=== PATIENT | female | born 1960 | race Caucasian/White ===

== ENCOUNTER 2022-01-08 20:30 | Emergency (ER) | payer OTHER ==
[~2022-01-08 20:30] MED LIST: EPIPEN 2-P0.3 MG/0.3 IM; K-DUR20 MEQ PO; PREDNISONE 20MG20 MG PO; ZYRTEC10 MG PO
== END 2022-01-08 22:44 | disposition home or self-care (01) ==
LOC: FER 20:30
DX: T63.461A Toxic effect of venom of wasps, accidental (unintentional), initial encounter (principal); R06.02 Shortness of breath; E03.9 Hypothyroidism, unspecified; Z88.5 Allergy status to narcotic agent; Z79.890 Hormone replacement therapy; Z28.310 Unvaccinated for COVID-19
CPT/HCPCS: J1200; J1885; J2930